=== PATIENT | female | born 1995 | race Caucasian/White ===

== ENCOUNTER 2021-07-20 09:14 | Inpatient (IN) | payer OTHER, SELFPAY ==
[~2021-07-20] VITALS: Ht 162.6 cm; Wt 61.2 kg
[2021-07-20 10:05] LABS: HEMATOCRIT 40.4 % (36.0-47.0); HEMOGLOBIN 14.1 g/dl (12.0-15.5); MEAN CORPUSCULAR HEMOGLOBIN 33.3 pg (27.0-33.0); MEAN CORPUSCULAR HGB CONC 34.9 g/dl (32.0-36.5); MEAN CORPUSCULAR VOLUME 95.3 fl (80.0-96.0); PLATELET COUNT, AUTOMATED 173 10^3/uL (150-450); RED BLOOD COUNT 4.24 10^6/uL (4.00-5.40); WHITE BLOOD COUNT 7.3 10^3/uL (4.0-10.0)
[2021-07-20 10:39] LABS: ACETAMINOPHEN LEVEL < 2.0 UG/ML (10.0-30.0); ALT/SGPT 29 U/L (12-78); BILIRUBIN,DIRECT 0.3 MG/DL (0.0-0.2); BILIRUBIN,TOTAL 0.7 MG/DL (0.2-1.0); BLOOD UREA NITROGEN 8 MG/DL (7-18); CALCIUM LEVEL 9.3 MG/DL (8.5-10.1); CARBON DIOXIDE LEVEL 19 MEQ/L (21-32); CHLORIDE LEVEL 101 MEQ/L (98-107); ETHYL ALCOHOL (ETHANOL) < 0.003 % (0.000-0.010); GLOMERULAR FILTRATION RATE > 60.0 (>60); GLUCOSE, FASTING 95 MG/DL (70-100); POTASSIUM SERUM 3.7 MEQ/L (3.5-5.1); SALICYLATE LEVEL < 1.7 MG/DL (5.0-30.0); SODIUM LEVEL 134 MEQ/L (136-145); TOTAL PROTEIN 7.8 GM/DL (6.4-8.2)
[2021-07-20 10:56] LABS: AMPHETAMINES LEVEL URINE POSITIVE (NEGATIVE); BARBITURATES URINE NEGATIVE (NEGATIVE); BENZODIAZEPINES URINE POSITIVE (NEGATIVE); CANNABINOIDS URINE POSITIVE (NEGATIVE); COCAINE METABOLITE URINE NEGATIVE (NEGATIVE); METHADONE URINE NEGATIVE (NEGATIVE); OPIATES URINE NEGATIVE (NEGATIVE); PHENCYCLIDINE URINE NEGATIVE (NEGATIVE)
[2021-07-20] MEDS ORDERED: D-AMPHETAMINE (16:32)
[2021-07-20] MEDS ORDERED: NICOTINE 21MG/24HR 1 EA TRANSDERMAL TD PRN (16:55)
[2021-07-20] MEDS ORDERED: traZODone 50 MG TAB PO PRN (16:55)
[2021-07-20] MEDS ORDERED: MOM 30ML SUSPENSION UDC PO PRN (16:55)
[2021-07-20] MEDS ORDERED: ACETAMINOPHEN TAB 650MG DOSE (2X325MG) PO PRN (16:55)
[2021-07-20] MEDS ORDERED: OLANZapine ORAL DISINTEGRATING TAB 5MG PO PRN (16:55)
[2021-07-20] MEDS ORDERED: MAALOX 30 ML SUSP *UDC PO PRN (16:55)
[2021-07-20] MEDS ORDERED: DEXT30TA PO (17:56)
[2021-07-20] MEDS ORDERED: DEXT10TA2 PO (17:56)
[2021-07-20] MEDS ORDERED: ALPR0.5T3 PO (17:56)
[2021-07-20] MEDS ORDERED: HOME MED LIST COMPLETE! XX SCH (18:00)
[2021-07-20] MEDS: PENICILLIN V POTASSIUM 500 MG TAB PO SCH (19:10)
[2021-07-20] MEDS: OLANZapine ORAL DISINTEGRATING TAB 5MG PO SCH ×2 (21:00→22:07)
[2021-07-21] MEDS: PENICILLIN V POTASSIUM 500 MG TAB PO SCH ×4 (03:10→19:22)
[2021-07-21] MEDS: FOLIC ACID 1 MG TAB PO SCH (09:00)
[2021-07-21] MEDS: MULTIVITAMINS/MINERALS THERAP 1 TAB PO SCH (09:00)
[2021-07-21] MEDS ORDERED: MOM 30ML SUSPENSION UDC PO PRN (17:40)
[2021-07-21] MEDS ORDERED: traZODone 50 MG TAB PO PRN (17:40)
[2021-07-21] MEDS ORDERED: MAALOX 30 ML SUSP *UDC PO PRN (17:40)
[2021-07-21] MEDS ORDERED: OLANZapine ORAL DISINTEGRATING TAB 5MG PO PRN (17:40)
[2021-07-21] MEDS ORDERED: LORazepam 2 MG TAB PO PRN (18:40)
[2021-07-21] MEDS: THIAMINE 100 MG TAB PO SCH (19:22)
[2021-07-21] MEDS: OLANZapine ORAL DISINTEGRATING TAB 5MG PO SCH (19:22)
[2021-07-21] MEDS: ACETAMINOPHEN TAB 650MG DOSE (2X325MG) PO PRN ×2 (19:22→21:51)
[2021-07-21 21:30] VITALS: BP 133/79
[2021-07-21 22:39] VITALS: BP 133/79
[2021-07-22] MEDS ORDERED: PENICILLIN V POTASSIUM 500 MG TAB PO ONE (06:00)
[2021-07-22 06:36] VITALS: BP 106/58
[2021-07-22 07:28] VITALS: BP 106/58
[2021-07-22] MEDS: FOLIC ACID 1 MG TAB PO SCH (09:35)
[2021-07-22] MEDS: MULTIVITAMINS/MINERALS THERAP 1 TAB PO SCH (09:35)
[2021-07-22] MEDS: THIAMINE 100 MG TAB PO SCH ×2 (09:35→22:08)
[2021-07-22] MEDS: PENICILLIN V POTASSIUM 500 MG TAB PO SCH ×2 (14:22→22:09)
[2021-07-22 16:09] VITALS: BP 120/71
[2021-07-22 19:45] VITALS: BP 120/71
[2021-07-22] MEDS: OLANZapine ORAL DISINTEGRATING TAB 5MG PO SCH (22:09)
[2021-07-23] MEDS: PENICILLIN V POTASSIUM 500 MG TAB PO SCH ×3 (06:22→21:19)
[2021-07-23 07:02] VITALS: BP 107/89
[2021-07-23] MEDS: THIAMINE 100 MG TAB PO SCH ×2 (09:31→21:19)
[2021-07-23] MEDS: MULTIVITAMINS/MINERALS THERAP 1 TAB PO SCH (09:32)
[2021-07-23] MEDS: FOLIC ACID 1 MG TAB PO SCH (09:32)
[2021-07-23 18:54] VITALS: BP 113/67
[2021-07-23 21:00] VITALS: BP 110/78
[2021-07-23] MEDS: OLANZapine ORAL DISINTEGRATING TAB 5MG PO SCH (21:00)
[2021-07-24] MEDS: PENICILLIN V POTASSIUM 500 MG TAB PO SCH (05:45)
[2021-07-24] MEDS: FOLIC ACID 1 MG TAB PO SCH (08:48)
[2021-07-24] MEDS: THIAMINE 100 MG TAB PO SCH (08:48)
[2021-07-24] MEDS: MULTIVITAMINS/MINERALS THERAP 1 TAB PO SCH (08:48)
== END 2021-07-24 11:40 | disposition home or self-care (01) | DRG 755 ==
LOC: M ED 09:14 → M ED INP 16:52 → M PSY 07-21 21:03
PROVIDERS: ADMIT Psychiatry & Neurology Psychiatry; ATTEND Psychiatry & Neurology Psychiatry
DX: F43.25 Adjustment disorder with mixed disturbance of emotions and conduct (principal); J02.0 Streptococcal pharyngitis; F90.9 Attention-deficit hyperactivity disorder, unspecified type; F41.9 Anxiety disorder, unspecified; Z79.899 Other long term (current) drug therapy; Z63.8 Other specified problems related to primary support group

== ENCOUNTER 2021-08-02 04:51 | Inpatient (IN) | payer OTHER ==
[~2021-08-02] VITALS: Ht 162.6 cm; Wt 54.5 kg
[~2021-08-02 04:51] MED LIST: ALPR0.5T3 PO; D-AMPHETAMINE; DEXT10TA2 PO; DEXT30TA PO
[2021-08-02 05:40] LABS: HEMATOCRIT 45.9 % (36.0-47.0); HEMOGLOBIN 15.5 g/dl (12.0-15.5); MEAN CORPUSCULAR HGB CONC 33.8 g/dl (32.0-36.5); MEAN CORPUSCULAR VOLUME 97.7 fl (80.0-96.0); PLATELET COUNT, AUTOMATED 242 10^3/uL (150-450); WHITE BLOOD COUNT 5.2 10^3/uL (4.0-10.0)
[2021-08-02 06:12] LABS: HCG, SERUM QUALITATIVE NEGATIVE (NEGATIVE)
[2021-08-02 06:20] LABS: AMPHETAMINES LEVEL URINE POSITIVE (NEGATIVE); BARBITURATES URINE NEGATIVE (NEGATIVE); BENZODIAZEPINES URINE NEGATIVE (NEGATIVE); CANNABINOIDS URINE POSITIVE (NEGATIVE); COCAINE METABOLITE URINE NEGATIVE (NEGATIVE); METHADONE URINE NEGATIVE (NEGATIVE); OPIATES URINE NEGATIVE (NEGATIVE); PHENCYCLIDINE URINE NEGATIVE (NEGATIVE)
[2021-08-02 06:20] LABS: ACETAMINOPHEN LEVEL < 2.0 UG/ML (10.0-30.0); ALBUMIN 3.9 GM/DL (3.2-5.2); ALT/SGPT 31 U/L (12-78); BILIRUBIN,DIRECT 0.1 MG/DL (0.0-0.2); BILIRUBIN,TOTAL 0.4 MG/DL (0.2-1.0); BLOOD UREA NITROGEN 7 MG/DL (7-18); CALCIUM LEVEL 9.1 MG/DL (8.5-10.1); CARBON DIOXIDE LEVEL 29 MEQ/L (21-32); CHLORIDE LEVEL 102 MEQ/L (98-107); CREATININE FOR GFR 0.69 MG/DL (0.55-1.30); ETHYL ALCOHOL (ETHANOL) 0.014 % (0.000-0.010); GLOMERULAR FILTRATION RATE > 60.0 (>60); GLUCOSE, FASTING 84 MG/DL (70-100); POTASSIUM SERUM 3.9 MEQ/L (3.5-5.1); SALICYLATE LEVEL < 1.7 MG/DL (5.0-30.0); SODIUM LEVEL 140 MEQ/L (136-145); TOTAL PROTEIN 7.6 GM/DL (6.4-8.2)
[2021-08-02] MEDS ORDERED: OLANZapine ORAL DISINTEGRATING TAB 5MG PO ONE (08:55)
[2021-08-02] MEDS ORDERED: OLANZapine INTRAMUSCULAR 10MG VIAL IM ONE (09:15)
[2021-08-02] MEDS ORDERED: HOME MED LIST COMPLETE! XX SCH (16:45)
[2021-08-02] MEDS ORDERED: COMMENTS (16:45)
[2021-08-03] MEDS ORDERED: ALPRAZolam 0.5 MG TAB PO PRN (07:30)
[2021-08-03] MEDS ORDERED: ADDERALL 5 MG TAB PO PRN (07:35)
[2021-08-03] MEDS: ADDERALL 5 MG TAB PO SCH (08:00)
[2021-08-03] MEDS ORDERED: MOM 30ML SUSPENSION UDC PO PRN (13:20)
[2021-08-03] MEDS ORDERED: ACETAMINOPHEN TAB 650MG DOSE (2X325MG) PO PRN (13:20)
[2021-08-03] MEDS ORDERED: OLANZapine ORAL DISINTEGRATING TAB 5MG PO PRN (13:20)
[2021-08-03] MEDS ORDERED: MAALOX 30 ML SUSP *UDC PO PRN (13:20)
[2021-08-03] MEDS ORDERED: ADDERALL 5 MG TAB PO SCH (14:00)
[2021-08-04] MEDS: ADDERALL 5 MG TAB PO SCH (08:00)
[2021-08-04 16:10] VITALS: BP 110/67
[2021-08-04] MEDS: OLANZapine 5 MG TAB PO SCH (21:00)
[2021-08-04] MEDS ORDERED: LORazepam 1 MG TAB PO PRN (22:25)
[2021-08-04] MEDS ORDERED: LORazepam 1 MG TAB PO ONE (22:30)
[2021-08-05] MEDS: hydrOXYzine 25 MG TAB PO PRN (18:50)
[2021-08-05] MEDS: OLANZapine 5 MG TAB PO SCH (21:33)
[2021-08-05] MEDS: traZODone 50 MG TAB PO PRN (22:01)
[2021-08-06] MEDS: hydrOXYzine 25 MG TAB PO PRN ×2 (10:46→20:51)
[2021-08-06 18:26] VITALS: BP 124/58
[2021-08-06] MEDS: OLANZapine 5 MG TAB PO SCH (20:51)
[2021-08-06] MEDS: traZODone 50 MG TAB PO PRN (20:51)
[2021-08-06] MEDS ORDERED: zolPIDEM TARTRATE 5 MG TAB PO PRN (22:15)
[2021-08-07] MEDS: hydrOXYzine 25 MG TAB PO PRN (08:51)
[2021-08-07] MEDS ORDERED: OLAN1TAB16 PO (09:27)
== END 2021-08-07 14:06 | disposition home or self-care (01) | DRG 751 ==
LOC: M ED 04:51 → M ED INP 08-03 13:17 → M PSY 08-03 15:39
PROVIDERS: ADMIT Student in an Organized Health Care Education/Training Program; ATTEND Psychiatry & Neurology Psychiatry
DX: F29 Unspecified psychosis not due to a substance or known physiological condition (principal); F15.159 Other stimulant abuse with stimulant-induced psychotic disorder, unspecified; F90.9 Attention-deficit hyperactivity disorder, unspecified type; F41.9 Anxiety disorder, unspecified; Z79.899 Other long term (current) drug therapy